=== PATIENT | female | born 1995 | race Two or more races ===

== ENCOUNTER 2025-01-19 14:09 | Emergency (ER) | payer MEDICAID, SELFPAY ==
[2025-01-19 14:26] VITALS: BP 131/80; PULSE 79; RESP 18; TEMP 36.8; O2SAT 96; BMI 30.9
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
== END 2025-01-19 14:59 | disposition home or self-care (01) ==
LOC: SERX 14:54
PROVIDERS: Emergency Provider Family Medicine; PCP Family Medicine
DX: S29.012A Strain of muscle and tendon of back wall of thorax, initial encounter (principal); S39.012A Strain of muscle, fascia and tendon of lower back, initial encounter; V89.2XXA Person injured in unspecified motor-vehicle accident, traffic, initial encounter; Y92.410 Unspecified street and highway as the place of occurrence of the external cause
CPT/HCPCS: 99281